=== PATIENT | male | born 1955 | race American Indian/Alaskan Native ===

== ENCOUNTER 2017-07-16 10:14 | Day surgery (SDC) | payer BC ==
[2017-07-08 16:25] VITALS: BMI 44.9
[2017-07-16] MEDS ORDERED: Lactated Ringer's 1,000 ML IV SCH (11:00)
[2017-07-16] MEDS ORDERED: Propofol 10 mg/ml Inj (20 ML) ONE (11:58)
[2017-07-16 13:02] VITALS: TEMP 98
[2017-07-16 14:12] VITALS: BP 123/55; PULSE 69; RESP 14; O2SAT 100
== END 2017-07-16 14:18 | disposition home or self-care (01) ==
LOC: ENDO 10:14
PROVIDERS: ATTEND Internal Medicine Gastroenterology
DX: K25.9 Gastric ulcer, unspecified as acute or chronic, without hemorrhage or perforation (principal); K21.0 Gastro-esophageal reflux disease with esophagitis; K29.50 Unspecified chronic gastritis without bleeding; D50.9 Iron deficiency anemia, unspecified; B96.81 Helicobacter pylori [H. pylori] as the cause of diseases classified elsewhere
CPT/HCPCS: 43239; 88305; 88342; J2001; J2704; J3010; J7040; J7120

== ENCOUNTER 2017-10-18 07:01 | Day surgery (SDC) | payer BC ==
[2017-10-11 09:12] VITALS: BMI 43.2
[2017-10-18] MEDS ORDERED: Propofol 10 mg/ml Inj (20 ML) ONE (09:02)
[2017-10-18] MEDS ORDERED: Sodium Chloride 0.9% 1,000 ML IV SCH (09:30)
[2017-10-18 09:58] VITALS: BP 132/74
[2017-10-18 11:22] VITALS: PULSE 71; RESP 16; TEMP 98.1; O2SAT 99
== END 2017-10-18 11:00 | disposition home or self-care (01) ==
LOC: ENDO 07:01
PROVIDERS: ATTEND Internal Medicine Gastroenterology
DX: K29.50 Unspecified chronic gastritis without bleeding (principal); K21.9 Gastro-esophageal reflux disease without esophagitis; Z87.11 Personal history of peptic ulcer disease
CPT/HCPCS: 43239; 88305; 88312; 88342; J2001; J2704; J7030; J7040